=== PATIENT | male | born 1965 | race Two or more races ===

== ENCOUNTER 2024-08-23 23:17 | Emergency (ER) | payer OTHER ==
[~2024-08-23] VITALS: Ht 170.2 cm; Wt 79.4 kg
[2024-08-24] MEDS ORDERED: KETOROLAC TROMETHAMINE 60 MG VIAL IM STA (02:35)
[2024-08-24 03:43] LABS: HEMATOCRIT 48.4 % (39.0-48.0); MEAN CELL VOLUME 94.4 fL (80.0-100.00); MEAN CORPUSCULAR HEMOGLOBIN 33.2 pg (27.00-32.0); MEAN CORPUSCULAR HGB CONC 35.2 g/dl (32.0-36.0); PLATELET COUNT 184 K/uL (150-450); RED BLOOD COUNT 5.13 M/uL (4.00-6.00); RED CELL DISTRIBUTION WIDTH 12.2 % (11.5-14.5)
[2024-08-24 04:02] LABS: CREATININE SERUM 1.24 mg/dL (0.70-1.30); GFR 59.88; POTASSIUM 3.9 mEq/L (3.5-5.1)
[2024-08-24 04:16] LABS: URINE APPEARANCE Clear; URINE BILIRRUBIN Negative (NEGATIVE); URINE BLOOD Large; URINE COLOR Yellow; URINE GLUCOSE Negative (NEGATIVE); URINE LEUKOCYTE Negative; URINE NITRATE Negative; URINE PROTEIN Trace (NEGATIVE)
[2024-08-24 04:20] LABS: URINE BACTERIA 14.6 uL (0.0-1933); URINE EPITHELIAL CELLS 4.2 uL (0.0-38.8); URINE RBC 975.6 uL (0.0-20.8); URINE WBC 10.9 uL (0.0-23.2)
[2024-08-24 04:28] LABS: URINE CAST 1.03 uL (0.0-1.40); URINE KETONE 40 (NEGATIVE)
== END 2024-08-24 06:10 | disposition home or self-care (01) ==
LOC: ER 23:19
DX: R10.9 Unspecified abdominal pain (principal); N20.0 Calculus of kidney

== ENCOUNTER 2025-06-13 08:56 | Outpatient (CLI) | payer OTHER | END 2025-06-13 09:05 | disposition home or self-care (01) | LOC: RAD 08:56 | PROVIDERS: ATTEND Physical Medicine & Rehabilitation | DX: M65.871 Other synovitis and tenosynovitis, right ankle and foot (principal); M65.872 Other synovitis and tenosynovitis, left ankle and foot ==